=== PATIENT | female | born 1945 | race African-American/Black ===

== ENCOUNTER 2019-04-02 12:13 | Emergency (ER) | payer OTHER ==
[~2019-04-02] VITALS: Ht 165.1 cm; Wt 126.5 kg
[2019-04-02] MEDS ORDERED: OZEMPIC0.25 MG/0. SUBQ (12:59)
[2019-04-02] MEDS ORDERED: COZAAR 25 MG TA25 M1 PO (12:59)
[2019-04-02] MEDS ORDERED: PREDNISONE 5 MG5 M1 PO (13:00)
[2019-04-02] MEDS ORDERED: FOLIC ACID1 MG PO (13:00)
[2019-04-02] MEDS ORDERED: CALCIUM 600 +1 EAC1 PO (13:01)
[2019-04-02] MEDS ORDERED: HYDROXYCHLOROQ200 M1 PO (13:01)
[2019-04-02] MEDS ORDERED: TRIAMCINOLONE A80 G2 TOP (13:02)
[2019-04-02] MEDS ORDERED: ZANTAC 150MG T150 MG PO (13:02)
[2019-04-02] MEDS ORDERED: FOSAMAX 70 MG T70 MG PO (13:02)
[2019-04-02] MEDS ORDERED: APAP650 PO (13:03)
[2019-04-02] MEDS ORDERED: VITAMIN D5000 UNIT PO (13:04)
[2019-04-02] MEDS ORDERED: VITAMIN B-12500 MCG SUBLING (13:04)
[2019-04-02 13:33] LABS: ABSOLUTE NEUTROPHILS 8.7 thou/uL (1.4-8.2); BASOPHILS 0.4 % (0.0-2.0); EOSINOPHILS 0.1 % (0.0-3.0); HEMATOCRIT 40.4 % (37.0-47.0); HEMOGLOBIN 13.4 gm/dL (12.0-15.0); LYMPHOCYTES 11.1 % (24.0-44.0); MCH 29.4 pg (26.0-34.0); MCHC 33.2 g/dL (28.0-37.0); MCV 88.5 fL (80.0-100.0); MONOCYTES 7.2 % (1.0-8.0); PLATELET COUNT 238 thou/uL (150-400); POLYS 81.2 % (36.0-66.0); RBC 4.56 mil/uL (4.20-5.00); RDW 13.9 % (10.5-14.5); WBC 10.7 thou/uL (4.0-11.0)
[2019-04-02 13:44] LABS: ANION GAP 7 mmol/L (7-16); BUN 8 mg/dL (7-18); CALCIUM 9.1 mg/dL (8.5-10.1); CHLORIDE 101 mmol/L (98-107); CO2 30 mmol/L (21-32); GLUCOSE 156 mg/dL (74-106); POTASSIUM 3.6 mmol/L (3.5-5.1); SODIUM 138 mmol/L (136-145)
[2019-04-02 13:46] LABS: LIPASE 46 U/L (73-393)
[2019-04-02 13:54] LABS: ALBUMIN 3.4 g/dL (3.4-5.0); SGOT 14 U/L (15-37); SGPT 14 U/L (30-65); TOTAL BILIRUBIN 0.6 mg/dL (<0.1-1.0); TROPONIN-I <0.06 ng/mL (<0.06)
--- NOTE | 2019-04-02 14:01 | EKG ---
[place] [address] [address] [facility] [place] [address] ELECTROCARDIOGRAM REPORT Name: ELEUTERIO GARCÍA [facility] [id number] ������������������ Admission: 04/02/19 ������������������ Attend Phys: Discharge: ������������������ Date of : 49 Report #: [id number] ����������������������������������������������������������������� [id number] THIS REPORT FOR: //name// [facility] ED Test Date: 2019-04-02 Test Time: 13:11:17 Pat Name: ELEUTERIO GARCÍA Department: Room: Gender: Second Facing Baster: ANTONINA : 1945 Requested By: Shawna Conn Order Number: [id number] MD: Dave Puga Measurements Intervals [place] Rate: 77 P: 37 DE: 183 QRS: -21 QRSD: 91 T: 51 QT: 376 QTc: 426 Interpretive Statements Sinus rhythm Borderline left axis deviation No previous ECG available for comparison Electronically Signed On 04-02-2019 14:01:02 CDT by Dave Puga [email or web address] ��������������������������������������������� <ELECTRONICALLY SIGNED> ���������������������������������������� By: Dave Puga MD ��������������������������������������������� 04/02/19 1401 1311 1311 Dave Puga MD /[email or web address]
[2019-04-02 14:55] VITALS: BP 151/74
[2019-04-02] MEDS ORDERED: NORCO 10-325 T1 EACH PO (14:56)
[2019-04-02] MEDS ORDERED: MEDROLDOSEPACK PO (14:56)
== END 2019-04-02 14:58 | disposition home or self-care (01) ==
LOC: ER 12:13
PROVIDERS: Physician Assistant
DX: M54.41 Lumbago with sciatica, right side (principal); R11.2 Nausea with vomiting, unspecified; I10 Essential (primary) hypertension; M06.9 Rheumatoid arthritis, unspecified; Z88.0 Allergy status to penicillin; Z88.8 Allergy status to other drugs, medicaments and biological substances

== ENCOUNTER 2019-06-10 22:26 | Emergency (ER) | payer OTHER ==
[~2019-06-10] VITALS: Ht 165.1 cm; Wt 122.5 kg
[~2019-06-10 22:26] MED LIST: APAP650 PO; CALCIUM 600 +1 EAC1 PO; COZAAR 25 MG TA25 M1 PO; FOLIC ACID1 MG PO; FOSAMAX 70 MG T70 MG PO; HYDROXYCHLOROQ200 M1 PO; MEDROLDOSEPACK PO; NORCO 10-325 T1 EACH PO; OZEMPIC0.25 MG/0. SUBQ; PREDNISONE 5 MG5 M1 PO; TRIAMCINOLONE A80 G2 TOP; VITAMIN B-12500 MCG SUBLING; VITAMIN D5000 UNIT PO; ZANTAC 150MG T150 MG PO
[2019-06-11] MEDS ORDERED: TRAMADOL 50 MG50 MG PO (00:04)
[2019-06-11 01:22] LABS: ABSOLUTE NEUTROPHILS 9.1 thou/uL (1.4-8.2); BASOPHILS 0.5 % (0.0-2.0); EOSINOPHILS 0.2 % (0.0-3.0); HEMATOCRIT 34.8 % (37.0-47.0); HEMOGLOBIN 11.2 gm/dL (12.0-15.0); LYMPHOCYTES 19.1 % (24.0-44.0); MCH 28.7 pg (26.0-34.0); MCHC 32.3 g/dL (28.0-37.0); MCV 88.8 fL (80.0-100.0); MONOCYTES 9.7 % (1.0-8.0); PLATELET COUNT 214 thou/uL (150-400); POLYS 70.5 % (36.0-66.0); RBC 3.92 mil/uL (4.20-5.00); RDW 15.2 % (10.5-14.5)
[2019-06-11 02:07] VITALS: BP 193/100
== END 2019-06-11 02:08 | disposition home or self-care (01) ==
LOC: ER 22:26
PROVIDERS: Emergency Medicine
DX: S02.5XXA Fracture of tooth (traumatic), initial encounter for closed fracture (principal); S01.511A Laceration without foreign body of lip, initial encounter; S80.211A Abrasion, right knee, initial encounter; S60.414A Abrasion of right ring finger, initial encounter; I10 Essential (primary) hypertension; M06.9 Rheumatoid arthritis, unspecified; Z88.0 Allergy status to penicillin; Z88.5 Allergy status to narcotic agent; Z88.8 Allergy status to other drugs, medicaments and biological substances; W01.198A Fall on same level from slipping, tripping and stumbling with subsequent striking against other object, initial encounter; Y92.000 Kitchen of unspecified non-institutional (private) residence as the place of occurrence of the external cause; Y93.01 Activity, walking, marching and hiking; Y99.8 Other external cause status

== ENCOUNTER → 2019-09-04 | Outpatient (CLI) | payer OTHER ==
[~2019-09-04] MED LIST changes: +TRAMADOL 50 MG50 MG PO
== END ==
LOC: RAD 15:52
DX: M17.11 Unilateral primary osteoarthritis, right knee (principal); M25.861 Other specified joint disorders, right knee